=== PATIENT | female | born 1970 | race Caucasian/White ===

== ENCOUNTER → 2019-05-25 12:28 | Outpatient (CLI) | payer OTHER, MEDICAID, SELFPAY ==
--- NOTE | 2019-05-25 13:34 | DI.RAD.S_ITS ---
PROCEDURE: XR SHOULDER LT MIN 2V INDICATIONS: LEFT SHOULDER PAIN TECHNIQUE: 3 views of the shoulder were acquired. COMPARISON: [facility], , SHOULDER MINIMUM 2VIEW RIGHT, 06/24/2017, 11:49. FINDINGS: Bones: No fractures or dislocations. No suspicious bony lesions. Visualized ribs appear intact. Mild narrowing of the acromioclavicular joint with periarticular osteophyte formation. Severe narrowing of the left glenohumeral joint with periarticular osteophyte formation. Soft tissues: No suspicious soft tissue calcifications. IMPRESSION: Severe glenohumeral degeneration. Dictated by: Keven Romero [facility] Interpreted: Darren Streeter MD on 05/25/2019 at 13:49 Approved by: Darren Streeter M.D. on 05/25/2019 at 16:32
== END ==
PROVIDERS: Family Provider Family Medicine; PCP Family Medicine; Referring Provider Student in an Organized Health Care Education/Training Program; Visit Provider Student in an Organized Health Care Education/Training Program
DX: M25.512 Pain in left shoulder (principal); M19.012 Primary osteoarthritis, left shoulder
CPT/HCPCS: 73030

== ENCOUNTER → 2022-05-31 10:55 | Outpatient (CLI) | payer OTHER, MEDICAID, SELFPAY ==
--- NOTE | 2022-05-31 | DI.RAD.S_ITS ---
PROCEDURE: XR SHOULDER LT MIN 2V INDICATIONS: SHOULDER PAIN TECHNIQUE: 3 views of the shoulder were acquired. COMPARISON: [facility], CR, XR SHOULDER LT MIN 2V, 05/25/2019, 12:37. FINDINGS: Bones: No fractures or dislocations. No suspicious bony lesions. Visualized ribs appear intact. Degenerative changes seen on the prior study is not as well visualized on this study. Soft tissues: No suspicious soft tissue calcifications. IMPRESSION: No acute abnormality of the left shoulder. Consider MRI for further evaluation. Dictated by: Rian Plaza M.D. on 05/31/2022 at 13:24 Approved by: Rian Plaza M.D. on 05/31/2022 at 13:25
--- NOTE | 2022-05-31 | DI.RAD.S_ITS ---
PROCEDURE: XR SHOULDER RT MIN 2V INDICATIONS: SHOULDER PAIN TECHNIQUE: 3 views of the shoulder were acquired. COMPARISON: [facility], CR, XR SHOULDER LT MIN 2V, 05/25/2019, 12:37. FINDINGS: Bones: No fractures or dislocations. No suspicious bony lesions. Visualized ribs appear intact. Healed right-sided rib fractures. Soft tissues: No suspicious soft tissue calcifications. IMPRESSION: No acute abnormality of the right shoulder Dictated by: Rian Plaza M.D. on 05/31/2022 at 13:22 Approved by: Rian Plaza M.D. on 05/31/2022 at 13:23
--- NOTE | 2022-05-31 | DI.RAD.S_ITS ---
PROCEDURE: XR KNEE RT 3V INDICATIONS: KNEE PAIN TECHNIQUE: 3 views of the knee were acquired. COMPARISON: None. FINDINGS: Bones: No fractures or dislocations. Mild degenerative changes of the right knee with narrowing of the lateral patellar facet. No suspicious bony lesions. Soft tissues: No joint effusion. No suspicious soft tissue calcifications. IMPRESSION: No acute abnormality. Consider MRI if there is continued pain. Dictated by: Rian Plaza M.D. on 05/31/2022 at 13:38 Approved by: Rian Plaza M.D. on 05/31/2022 at 13:43
== END ==
PROVIDERS: PCP Registered Nurse; Referring Provider Registered Nurse; Visit Provider Registered Nurse
DX: M25.512 Pain in left shoulder (principal); M25.511 Pain in right shoulder; M25.561 Pain in right knee
CPT/HCPCS: 73020; 73030; 73562